=== PATIENT | male | born 1980 | race Caucasian/White ===

== ENCOUNTER 2017-02-05 23:05 | Emergency (ER) | payer MEDICAID, OTHER ==
[~2017-02-05] VITALS: Ht 177.8 cm; Wt 99.8 kg
[2017-02-05 23:11] VITALS: BP 125/80
--- NOTE | 2017-02-05 23:37 | NUR ---
Patient to bed 04.
--- NOTE | 2017-02-05 23:45 | NUR ---
C/O CHEST PAIN THAT RADIATES TO LEFT SHOULDER AND ARM. PT STATES PAIN IS 1O/1O. PT STATES HE HAS VOMITTING WELL; SKIN IS PINK/WARM/DRY; AAOX4 WITH EVEN AND STEADY GAIT; LUNGS CLEAR BL; HR EVEN AND REGULAR; PT DENIES ANY FEVER, SOB, OR COUGH AT THIS TIME; PATIENT STATES PAIN OF 10/10 AT THIS TIME; VSS; PATIENT POSITIONED FOR COMFORT; HOB ELEVATED; BEDRAILS UP X2; BED DOWN. ER MD MADE AWARE OF PT STATUS.
--- NOTE | 2017-02-05 23:50 | NUR ---
DR YARBROUGH MADE AWARE OF PT STATUS, WILL EVALUATE PT.
--- NOTE | 2017-02-05 23:51 | NUR ---
Dr. Yin evaluating patient at bedside.
--- NOTE | 2017-02-06 00:31 | NUR ---
PT TO CT VIA WC IN STABLE CONDITION
--- NOTE | 2017-02-06 00:31 | NUR ---
Patient to CT via wheelchair per tech.
--- NOTE | 2017-02-06 00:43 | NUR ---
PT RETURNED FROM CT VIA WC IN STABLE CONDITION
[2017-02-06] MEDS ORDERED: MORPHINE SULFATE 2 MG/ML SYR IVP ONE (01:10)
--- NOTE | 2017-02-06 01:40 | NUR ---
Patient discharged with v/s stable. Written and verbal after care instructions given and explained. Patient alert, oriented and verbalized understanding of instructions. Ambulatory with steady gait. All questions addressed prior to discharge. ID band removed. Patient advised to follow up with PMD. Rx of OMEPRAZOLE, NORCO given. Patient educated on indication of medication including possible reaction and side effects. Opportunity to ask questions provided and answered.
[2017-02-06 01:43] VITALS: BP 146/91
== END 2017-02-06 01:40 | disposition home or self-care (01) ==
LOC: MED 23:05
DX: K21.9 Gastro-esophageal reflux disease without esophagitis (principal); E78.00 Pure hypercholesterolemia, unspecified
CPT/HCPCS: 36415; 74176; 80053; 81001; 82150; 83690; 84484; 85025; 96374; 99285; J2270

== ENCOUNTER 2017-02-22 00:05 | Emergency (ER) | payer OTHER ==
[~2017-02-22] VITALS: Ht 167.6 cm; Wt 101.6 kg
[2017-02-22 00:09] VITALS: BP 142/85
--- NOTE | 2017-02-22 00:57 | NUR ---
36Y M BIB FAMILY C/O CHEST PAIN, RADIATING TO THE L ARM X 3 YEAR INTERMITTENTLY, 10/10 PAIN, PT STATES HE HAS NO MEDICAL HX OR ALLERGIES. PT CURRENTLY IS CALM AND NON DIAPHORETIC- NO N/V/D STATED BY PT AT THE MOMENT
--- NOTE | 2017-02-22 00:57 | NUR ---
TO ER BED 7
--- NOTE | 2017-02-22 01:42 | NUR ---
Patient being evaluated by physician at bedside.
[2017-02-22] MEDS ORDERED: KETOROLAC 30 MG/ML VIAL IVP ONE (01:45)
[2017-02-22] MEDS ORDERED: ASPIRIN 81 MG TAB.CHEW PO ONE (01:45)
[2017-02-22] MEDS ORDERED: NACL 0.9% 1,000 ML IV ONE (01:45)
[2017-02-22] MEDS ORDERED: fentaNYL 0.05 MG/ML VIAL IVP ONE (02:35)
--- NOTE | 2017-02-22 03:24 | NUR ---
Patient discharged with v/s stable. Written and verbal after care instructions given and explained. Patient alert, oriented and verbalized understanding of instructions. Ambulatory with steady gait. All questions addressed prior to discharge. ID band removed. Patient advised to follow up with PMD. Rx of TRAMADOL AND MOTRIN given. Patient educated on indication of medication including possible reaction and side effects. Opportunity to ask questions provided and answered.
[2017-02-22 03:25] VITALS: BP 130/92
== END 2017-02-22 03:25 | disposition home or self-care (01) ==
LOC: MED 00:05
DX: R07.89 Other chest pain (principal); R03.0 Elevated blood-pressure reading, without diagnosis of hypertension; R20.0 Anesthesia of skin; K21.9 Gastro-esophageal reflux disease without esophagitis
CPT/HCPCS: 36415; 71010; 80053; 84484; 85025; 85610; 85730; 93005; 96361; 96374; 96375; 99285; J1885; J3010; J7030; Q0092